=== PATIENT | female | born 1950 | race Caucasian/White ===

== ENCOUNTER → 2023-11-13 10:41 | Outpatient (REF) | payer MEDICARE, OTHER, SELFPAY ==
[2023-11-13 12:15] LABS: ALT (SGPT) 19 U/L (0-35); AST (SGOT) 25 U/L (14-36); Albumin 4.1 g/dl (3.5-5.0); Alkaline Phosphatase 86 U/L (38-126); Blood Urea Nitrogen 15 mg/dl (7-17); Calcium 9.6 mg/dl (8.4-10.2); Carbon Dioxide 29 mmol/L (22-30); Chloride 102 mmol/L (98-107); Glucose 180 mg/dl (70-99); HDL Cholesterol 56 mg/dl; LDL Cholesterol, Calculated 58 mg/dl; Potassium 4.9 mmol/L (3.5-5.1); Sodium 137 mmol/L (135-145); Total Bilirubin 0.7 mg/dl (0.2-1.3); Total Cholesterol 134 mg/dl (50-199); Total Protein 6.6 g/dl (6.3-8.2); Triglyceride 104 mg/dl (10-149); Very Low Density Lipoprotein 20 mg/dl (0-30); eGFR > 60.00
== END ==
LOC: REG 10:41
PROVIDERS: ATTENDING PHYSICIAN Internal Medicine Cardiovascular Disease; FAMILY PHYSICIAN Internal Medicine
DX: I25.10 Atherosclerotic heart disease of native coronary artery without angina pectoris (principal)
CPT/HCPCS: 36415; 80053; 80061

== ENCOUNTER → 2023-12-24 09:28 | Outpatient (REF) | payer MEDICARE, OTHER, SELFPAY ==
[2023-12-24 12:30] LABS: ALT (SGPT) 22 U/L (0-35); AST (SGOT) 27 U/L (14-36); Albumin 4.2 g/dl (3.5-5.0); Alkaline Phosphatase 96 U/L (38-126); Blood Urea Nitrogen 15 mg/dl (7-17); Calcium 9.6 mg/dl (8.4-10.2); Carbon Dioxide 26 mmol/L (22-30); Chloride 103 mmol/L (98-107); Glucose 198 mg/dl (70-99); HDL Cholesterol 51 mg/dl; LDL Cholesterol, Calculated 75 mg/dl; Potassium 4.9 mmol/L (3.5-5.1); Sodium 139 mmol/L (135-145); Total Bilirubin 0.6 mg/dl (0.2-1.3); Total Cholesterol 144 mg/dl (50-199); Total Protein 6.6 g/dl (6.3-8.2); Triglyceride 94 mg/dl (10-149); Very Low Density Lipoprotein 18 mg/dl (0-30); eGFR > 60.00
[2023-12-24 12:57] LABS: Glycohemoglobin (HgbA1c) 7.9 % (4.0-5.6)
== END ==
LOC: REG 09:28
PROVIDERS: ATTENDING PHYSICIAN Internal Medicine Endocrinology, Diabetes & Metabolism; FAMILY PHYSICIAN Internal Medicine
DX: E10.9 Type 1 diabetes mellitus without complications (principal)
CPT/HCPCS: 36415; 80053; 80061; 83036; 84443

== ENCOUNTER → 2024-01-14 08:51 | Outpatient (REF) | payer MEDICARE, OTHER, SELFPAY ==
[2024-01-14 09:47] LABS: ALT (SGPT) 26 U/L (0-35); AST (SGOT) 30 U/L (14-36); Albumin 4.2 g/dl (3.5-5.0); Alkaline Phosphatase 102 U/L (38-126); Blood Urea Nitrogen 14 mg/dl (7-17); Calcium 9.7 mg/dl (8.4-10.2); Carbon Dioxide 28 mmol/L (22-30); Chloride 105 mmol/L (98-107); Glucose 161 mg/dl (70-99); Potassium 5.2 mmol/L (3.5-5.1); Sodium 139 mmol/L (135-145); Total Bilirubin 0.5 mg/dl (0.2-1.3); Total Protein 6.6 g/dl (6.3-8.2); eGFR > 60.00
[2024-01-15 23:17] LABS: C-Peptide <0.1 ng/mL (0.5-3.3)
== END ==
LOC: REG 08:51
PROVIDERS: ATTENDING PHYSICIAN Internal Medicine Endocrinology, Diabetes & Metabolism; FAMILY PHYSICIAN Internal Medicine
DX: E10.9 Type 1 diabetes mellitus without complications (principal)
CPT/HCPCS: 36415; 80053; 84681

== ENCOUNTER → 2024-02-29 13:31 | Outpatient (REF) | payer MEDICARE, OTHER, SELFPAY | LOC: WDC 13:31 | PROVIDERS: ATTENDING PHYSICIAN Obstetrics & Gynecology Gynecology; FAMILY PHYSICIAN Internal Medicine | DX: Z12.31 Encounter for screening mammogram for malignant neoplasm of breast (principal) | CPT/HCPCS: 77063; 77067 ==

== ENCOUNTER → 2024-03-08 07:51 | Outpatient (REF) | payer MEDICARE, OTHER, SELFPAY | LOC: DHVS 07:51 | PROVIDERS: ATTENDING PHYSICIAN Surgery Vascular Surgery; FAMILY PHYSICIAN Internal Medicine | DX: I73.9 Peripheral vascular disease, unspecified (principal) | CPT/HCPCS: 93922; 93925; 93978 ==

== ENCOUNTER 2024-03-16 09:55 | Outpatient (RCR) | payer MEDICARE, OTHER, SELFPAY | END 2024-03-16 23:59 | disposition home or self-care (01) | LOC: RPT 09:55 | PROVIDERS: ATTENDING PHYSICIAN Orthopaedic Surgery; FAMILY PHYSICIAN Internal Medicine | DX: M76.32 Iliotibial band syndrome, left leg (principal); Z73.6 Limitation of activities due to disability | CPT/HCPCS: 97110; 97112; 97140; 97162 ==

== ENCOUNTER → 2024-03-17 08:53 | Outpatient (REF) | payer MEDICARE, OTHER, SELFPAY | LOC: RAD 08:53 | PROVIDERS: ATTENDING PHYSICIAN Surgery Vascular Surgery; FAMILY PHYSICIAN Internal Medicine | DX: I73.9 Peripheral vascular disease, unspecified (principal) | CPT/HCPCS: 75635; Q9967 ==

== ENCOUNTER 2024-03-23 09:04 | Outpatient (RCR) | payer MEDICARE, OTHER, SELFPAY | END 2024-03-23 13:11 | disposition home or self-care (01) | LOC: RPT 09:04 | PROVIDERS: ATTENDING PHYSICIAN Orthopaedic Surgery; FAMILY PHYSICIAN Internal Medicine | DX: M25.551 Pain in right hip (principal); M25.552 Pain in left hip; M76.899 Other specified enthesopathies of unspecified lower limb, excluding foot; M76.32 Iliotibial band syndrome, left leg; Z73.6 Limitation of activities due to disability | CPT/HCPCS: 97110; 97140 ==

== ENCOUNTER → 2024-04-28 07:48 | Outpatient (REF) | payer MEDICARE, OTHER, SELFPAY | LOC: WOUND 07:48 | PROVIDERS: ATTENDING PHYSICIAN Surgery; FAMILY PHYSICIAN Internal Medicine | DX: L97.225 Non-pressure chronic ulcer of left calf with muscle involvement without evidence of necrosis (principal); E10.59 Type 1 diabetes mellitus with other circulatory complications; Z79.4 Long term (current) use of insulin; I70.209 Unspecified atherosclerosis of native arteries of extremities, unspecified extremity; I65.23 Occlusion and stenosis of bilateral carotid arteries; I10 Essential (primary) hypertension | CPT/HCPCS: 11043; 99203 ==

== ENCOUNTER → 2024-05-02 13:15 | Outpatient (REF) | payer MEDICARE, OTHER, SELFPAY | LOC: WOUND 13:15 | PROVIDERS: ATTENDING PHYSICIAN Surgery; FAMILY PHYSICIAN Internal Medicine | DX: L97.225 Non-pressure chronic ulcer of left calf with muscle involvement without evidence of necrosis (principal); E10.59 Type 1 diabetes mellitus with other circulatory complications; I70.209 Unspecified atherosclerosis of native arteries of extremities, unspecified extremity; I65.23 Occlusion and stenosis of bilateral carotid arteries; I10 Essential (primary) hypertension | CPT/HCPCS: 11042 ==

== ENCOUNTER → 2024-05-09 13:12 | Outpatient (REF) | payer MEDICARE, OTHER, SELFPAY | LOC: WOUND 13:12 | PROVIDERS: ATTENDING PHYSICIAN Surgery; FAMILY PHYSICIAN Internal Medicine | DX: L97.225 Non-pressure chronic ulcer of left calf with muscle involvement without evidence of necrosis (principal); E10.59 Type 1 diabetes mellitus with other circulatory complications; Z79.4 Long term (current) use of insulin; I70.209 Unspecified atherosclerosis of native arteries of extremities, unspecified extremity; I65.23 Occlusion and stenosis of bilateral carotid arteries; I10 Essential (primary) hypertension | CPT/HCPCS: 11042 ==

== ENCOUNTER → 2024-05-16 13:17 | Outpatient (REF) | payer MEDICARE, OTHER, SELFPAY | LOC: WOUND 13:17 | PROVIDERS: ATTENDING PHYSICIAN Surgery; FAMILY PHYSICIAN Internal Medicine | DX: L97.225 Non-pressure chronic ulcer of left calf with muscle involvement without evidence of necrosis (principal); E10.59 Type 1 diabetes mellitus with other circulatory complications; Z79.4 Long term (current) use of insulin; I70.209 Unspecified atherosclerosis of native arteries of extremities, unspecified extremity; I65.23 Occlusion and stenosis of bilateral carotid arteries; I10 Essential (primary) hypertension | CPT/HCPCS: 11042 ==

== ENCOUNTER → 2024-05-23 13:16 | Outpatient (REF) | payer MEDICARE, OTHER, SELFPAY | LOC: WOUND 13:16 | PROVIDERS: ATTENDING PHYSICIAN Surgery; FAMILY PHYSICIAN Internal Medicine | DX: L97.225 Non-pressure chronic ulcer of left calf with muscle involvement without evidence of necrosis (principal); E10.59 Type 1 diabetes mellitus with other circulatory complications; I70.209 Unspecified atherosclerosis of native arteries of extremities, unspecified extremity; I65.23 Occlusion and stenosis of bilateral carotid arteries; I10 Essential (primary) hypertension; Z79.4 Long term (current) use of insulin | CPT/HCPCS: 99212 ==

== ENCOUNTER → 2024-05-29 11:18 | Outpatient (REF) | payer MEDICARE, OTHER, SELFPAY | LOC: WOUND 11:18 | PROVIDERS: ATTENDING PHYSICIAN Surgery; FAMILY PHYSICIAN Internal Medicine | DX: L97.225 Non-pressure chronic ulcer of left calf with muscle involvement without evidence of necrosis (principal); E10.59 Type 1 diabetes mellitus with other circulatory complications; Z79.4 Long term (current) use of insulin; I70.209 Unspecified atherosclerosis of native arteries of extremities, unspecified extremity; I65.23 Occlusion and stenosis of bilateral carotid arteries; I10 Essential (primary) hypertension | CPT/HCPCS: 11042 ==

== ENCOUNTER → 2024-06-02 07:52 | Outpatient (REF) | payer MEDICARE, OTHER, SELFPAY | LOC: WOUND 07:52 | PROVIDERS: ATTENDING PHYSICIAN Surgery; FAMILY PHYSICIAN Internal Medicine | DX: L97.225 Non-pressure chronic ulcer of left calf with muscle involvement without evidence of necrosis (principal); E10.59 Type 1 diabetes mellitus with other circulatory complications; I70.209 Unspecified atherosclerosis of native arteries of extremities, unspecified extremity; I65.23 Occlusion and stenosis of bilateral carotid arteries; I10 Essential (primary) hypertension; Z79.4 Long term (current) use of insulin | CPT/HCPCS: 29580 ==

== ENCOUNTER → 2024-06-06 09:14 | Outpatient (REF) | payer MEDICARE, OTHER, SELFPAY | LOC: WOUND 09:14 | PROVIDERS: ATTENDING PHYSICIAN Surgery | DX: L97.225 Non-pressure chronic ulcer of left calf with muscle involvement without evidence of necrosis (principal); E10.59 Type 1 diabetes mellitus with other circulatory complications; Z79.4 Long term (current) use of insulin; I70.209 Unspecified atherosclerosis of native arteries of extremities, unspecified extremity; I65.23 Occlusion and stenosis of bilateral carotid arteries; I10 Essential (primary) hypertension | CPT/HCPCS: 97597 ==

== ENCOUNTER → 2024-06-12 10:44 | Outpatient (REF) | payer MEDICARE, OTHER, SELFPAY | LOC: WOUND 10:44 | PROVIDERS: ATTENDING PHYSICIAN Surgery; FAMILY PHYSICIAN Internal Medicine | DX: L97.225 Non-pressure chronic ulcer of left calf with muscle involvement without evidence of necrosis (principal); E10.59 Type 1 diabetes mellitus with other circulatory complications; E11.9 Type 2 diabetes mellitus without complications; I70.209 Unspecified atherosclerosis of native arteries of extremities, unspecified extremity; I65.23 Occlusion and stenosis of bilateral carotid arteries; I10 Essential (primary) hypertension; Z79.4 Long term (current) use of insulin | CPT/HCPCS: 11042 ==

== ENCOUNTER → 2024-06-19 13:16 | Outpatient (REF) | payer MEDICARE, OTHER, SELFPAY | LOC: WOUND 13:16 | PROVIDERS: ATTENDING PHYSICIAN Surgery; FAMILY PHYSICIAN Internal Medicine | DX: L97.225 Non-pressure chronic ulcer of left calf with muscle involvement without evidence of necrosis (principal); E10.59 Type 1 diabetes mellitus with other circulatory complications; I70.209 Unspecified atherosclerosis of native arteries of extremities, unspecified extremity; I65.23 Occlusion and stenosis of bilateral carotid arteries; I10 Essential (primary) hypertension; Z79.4 Long term (current) use of insulin | CPT/HCPCS: 29581; 99213 ==

== ENCOUNTER → 2024-06-26 09:08 | Outpatient (REF) | payer MEDICARE, OTHER, SELFPAY | LOC: WOUND 09:08 | PROVIDERS: ATTENDING PHYSICIAN Surgery; FAMILY PHYSICIAN Internal Medicine | DX: L97.225 Non-pressure chronic ulcer of left calf with muscle involvement without evidence of necrosis (principal); E10.59 Type 1 diabetes mellitus with other circulatory complications; E11.9 Type 2 diabetes mellitus without complications; Z79.4 Long term (current) use of insulin; I70.209 Unspecified atherosclerosis of native arteries of extremities, unspecified extremity; I65.23 Occlusion and stenosis of bilateral carotid arteries; I10 Essential (primary) hypertension | CPT/HCPCS: 97597 ==

== ENCOUNTER → 2024-06-30 08:55 | Outpatient (REF) | payer MEDICARE, OTHER, SELFPAY ==
[2024-06-30 11:02] LABS: ALT (SGPT) 21 U/L (0-35); AST (SGOT) 26 U/L (14-36); Albumin 4.4 g/dl (3.5-5.0); Alkaline Phosphatase 90 U/L (38-126); Blood Urea Nitrogen 14 mg/dl (7-17); Calcium 9.2 mg/dl (8.4-10.2); Carbon Dioxide 27 mmol/L (22-30); Chloride 103 mmol/L (98-107); Glucose 192 mg/dl (70-99); HDL Cholesterol 49 mg/dl; LDL Cholesterol, Calculated 70 mg/dl; Sodium 140 mmol/L (135-145); Total Bilirubin 0.5 mg/dl (0.2-1.3); Total Cholesterol 145 mg/dl (50-199); Triglyceride 130 mg/dl (10-149); Very Low Density Lipoprotein 26 mg/dl (0-30); eGFR > 60.00
[2024-06-30 11:15] LABS: TSH 4.05 uIU/ml (0.47-4.68)
[2024-06-30 11:46] LABS: Glycohemoglobin (HgbA1c) 7.5 % (4.0-5.6)
[2024-06-30 12:38] LABS: Microalbumin, Random Urine 7.9 mg/dl (0.6-1.7)
[2024-06-30 12:46] LABS: Microalbumin/creatinine Ratio 90.8 mg/g
== END ==
LOC: REG 08:55
PROVIDERS: ATTENDING PHYSICIAN Internal Medicine Endocrinology, Diabetes & Metabolism; FAMILY PHYSICIAN Internal Medicine
DX: E10.9 Type 1 diabetes mellitus without complications (principal)
CPT/HCPCS: 36415; 80053; 80061; 82043; 82570; 83036; 84443

== ENCOUNTER → 2024-07-03 10:40 | Outpatient (REF) | payer MEDICARE, OTHER, SELFPAY | LOC: WOUND 10:40 | PROVIDERS: ATTENDING PHYSICIAN Surgery; FAMILY PHYSICIAN Internal Medicine | DX: L97.225 Non-pressure chronic ulcer of left calf with muscle involvement without evidence of necrosis (principal); E10.59 Type 1 diabetes mellitus with other circulatory complications; Z79.4 Long term (current) use of insulin; I70.209 Unspecified atherosclerosis of native arteries of extremities, unspecified extremity; I65.23 Occlusion and stenosis of bilateral carotid arteries; I10 Essential (primary) hypertension | CPT/HCPCS: 99212 ==

== ENCOUNTER → 2024-12-23 08:46 | Outpatient (REF) | payer MEDICARE, OTHER, SELFPAY ==
[2024-12-23 09:51] LABS: ALT (SGPT) 19 U/L (0-35); AST (SGOT) 22 U/L (14-36); Albumin 4.1 g/dl (3.5-5.0); Alkaline Phosphatase 76 U/L (38-126); Blood Urea Nitrogen 18 mg/dl (7-17); Calcium 9.5 mg/dl (8.4-10.2); Carbon Dioxide 27 mmol/L (22-30); Chloride 108 mmol/L (98-107); Glucose 139 mg/dl (70-99); HDL Cholesterol 46 mg/dl; LDL Cholesterol, Calculated 73 mg/dl; Potassium 5.1 mmol/L (3.5-5.1); Sodium 141 mmol/L (135-145); Total Bilirubin 0.5 mg/dl (0.2-1.3); Total Cholesterol 139 mg/dl (50-199); Total Protein 6.7 g/dl (6.3-8.2); Triglyceride 101 mg/dl (10-149); Very Low Density Lipoprotein 20 mg/dl (0-30); eGFR > 60.00
[2024-12-23 10:01] LABS: Microalbumin, Random Urine 4.3 mg/dl (0.6-1.7); Microalbumin/creatinine Ratio 71.1 mg/g
[2024-12-23 10:18] LABS: TSH 4.08 uIU/ml (0.47-4.68)
[2024-12-23 10:27] LABS: Glycohemoglobin (HgbA1c) 7.5 % (4.0-5.6)
== END ==
LOC: REG 08:46
PROVIDERS: ATTENDING PHYSICIAN Internal Medicine Endocrinology, Diabetes & Metabolism; FAMILY PHYSICIAN Internal Medicine
DX: E10.9 Type 1 diabetes mellitus without complications (principal)
CPT/HCPCS: 36415; 80053; 80061; 82043; 82570; 83036; 84443

== ENCOUNTER → 2025-01-12 15:16 | Outpatient (REF) | payer MEDICARE, OTHER, SELFPAY | LOC: RAD 15:16 | PROVIDERS: ATTENDING PHYSICIAN Internal Medicine | DX: K57.92 Diverticulitis of intestine, part unspecified, without perforation or abscess without bleeding (principal); R10.32 Left lower quadrant pain | CPT/HCPCS: 74177; Q9967 ==

== ENCOUNTER → 2025-03-02 13:08 | Outpatient (REF) | payer MEDICARE, OTHER, SELFPAY | LOC: WDC 13:08 | PROVIDERS: ATTENDING PHYSICIAN Obstetrics & Gynecology Gynecology; FAMILY PHYSICIAN Internal Medicine | DX: Z12.31 Encounter for screening mammogram for malignant neoplasm of breast (principal) | CPT/HCPCS: 77063; 77067 ==

== ENCOUNTER → 2025-04-16 10:27 | Outpatient (REF) | payer MEDICARE, OTHER, SELFPAY | LOC: PAVMRI 10:27 | PROVIDERS: ATTENDING PHYSICIAN Physician Assistant; FAMILY PHYSICIAN Internal Medicine | DX: M54.16 Radiculopathy, lumbar region (principal) | CPT/HCPCS: 72148 ==

== ENCOUNTER → 2025-04-24 07:49 | Outpatient (REF) | payer MEDICARE, OTHER, SELFPAY | LOC: RAD 07:49 | PROVIDERS: ATTENDING PHYSICIAN Surgery Vascular Surgery; FAMILY PHYSICIAN Internal Medicine | DX: I73.9 Peripheral vascular disease, unspecified (principal) | CPT/HCPCS: 93922; 93925; 93978 ==

== ENCOUNTER → 2025-05-18 12:44 | Outpatient (REF) | payer MEDICARE, OTHER, SELFPAY | LOC: WDC 12:44 | PROVIDERS: ATTENDING PHYSICIAN Obstetrics & Gynecology Gynecology; FAMILY PHYSICIAN Internal Medicine | DX: R92.2 Inconclusive mammogram (principal); Z80.3 Family history of malignant neoplasm of breast | CPT/HCPCS: 76641 ==

== ENCOUNTER → 2025-06-26 12:05 | Outpatient (REF) | payer MEDICARE, OTHER, SELFPAY ==
[2025-06-26 13:46] LABS: Glycohemoglobin (HgbA1c) 8.3 % (4.0-5.9)
[2025-06-26 15:30] LABS: ALT (SGPT) 19 U/L (0-35); AST (SGOT) 21 U/L (14-36); Albumin 3.9 g/dl (3.5-5.0); Alkaline Phosphatase 96 U/L (38-126); Blood Urea Nitrogen 18 mg/dl (7-17); Calcium 9.2 mg/dl (8.4-10.2); Carbon Dioxide 28 mmol/L (22-30); Chloride 103 mmol/L (98-107); Glucose 168 mg/dl (70-99); HDL Cholesterol 42 mg/dl; LDL Cholesterol, Calculated 70 mg/dl; Potassium 4.7 mmol/L (3.5-5.1); Sodium 135 mmol/L (135-145); Total Protein 6.4 g/dl (6.3-8.2); Very Low Density Lipoprotein 25 mg/dl (0-30); eGFR > 60.00
[2025-06-26 16:47] LABS: TSH 3.99 uIU/ml (0.47-4.68)
== END ==
LOC: OLABPV 12:05
PROVIDERS: ATTENDING PHYSICIAN Internal Medicine Endocrinology, Diabetes & Metabolism
DX: E10.9 Type 1 diabetes mellitus without complications (principal)
CPT/HCPCS: 36415; 80053; 80061; 83036; 84443